=== PATIENT | female | born 1995 | race Caucasian/White ===

== ENCOUNTER → 2021-07-03 | Outpatient (CLI) | payer OTHER ==
--- NOTE | 2021-07-04 08:58 | USB ---
Reason for exam: clinical finding. History: Patient is nulliparous. Taking hormonal contraceptives beginning at age 25. Physical Findings: Nurse Summary: 1cm nodule in the left breast at 2 o'clock (nurse martha). US Breast Limited LT Left limited breast ultrasound including focal area of concern, retroareolar and axilla demonstrates a 0.8 x 0.4 x 1.4cm hypoechoic, avascular lesion at 2 o'clock and a 1.0 x 0.6 x 1.2cm hypoechoic, avascular lesion at 2 o'clock. These results were verbally communicated with the patient and result sheet given to the patient on 07/03/21. ASSESSMENT: Suspicious, BI-RAD 4 RECOMMENDATION: Ultrasound core biopsy of the left breast. (larger, palpable lesion) Called Dr. Ontiveros's office with mammographic findings and has scheduled an appointment for the patient for 07/05/21 at 11:[address] Quintero. PRELIMINARY REPORT CALLED AND FAXED TO DR. QUINTERO ON 07/04/21.
== END | disposition home or self-care (01) ==
LOC: RADMAMWWP 13:44
PROVIDERS: ATTEND Family Medicine
DX: N64.89 Other specified disorders of breast (principal)

== ENCOUNTER → 2021-07-05 | Outpatient (CLI) | payer OTHER ==
[2021-07-05 11:28] VITALS: BP 116/81; PULSE 62; RESP 16; TEMP 98.4
--- NOTE | 2021-07-05 12:13 | P.GSHP ---
History of Present Illness H&P Date: 07/05/21 Chief Complaint: mass left breast Olena is a 25 year old white female seen in consultation for Dr. Christopher Ontiveros regarding a mass in her left breast. She noticed this approximately 2 months ago. She had an ultrasound performed on [id number]. This revealed a 1 x 1.2 cm avascular lesion at 2:00 as well as a 0.8 x 1.4 cm lesion at 2:00. The patient does not complain of any pain in her breast. She denies any surgery or infection in her breast. She's not had any recent trauma of the breast. The lump was noted before the patient started any control. She is only on control for approximately 1 month. Caffeine: 8 0z. QOD nicotine: none, stopped 11/2 months ago; used nicotine for 3 years chocolate: weekly Family History: paternal aunt: ? type from this Hormonal history: Menarche: 13 G0; sexually active; BCP: pill on this for about 1 month periods regular Surgical History: hernia abdomen Medical History: none Social History: nicotine: Stopped approximately 1-1/2 months ago, uses nicotine outer smoking or draping for approximately 3 years prior to that Alcohol: rare drugs: Marijuana daily - Constitutional Constitutional: Reports sweats, Denies chills, Denies fever - EENT Eyes: denies blurred vision, denies pain Ears: right: decreased hearing, bilateral: tinnitus Ears, nose, mouth and throat: Denies headache, Denies sore throat - Breasts Breasts: bilateral: as per HPI - Cardiovascular Cardiovascular: Denies chest pain, Denies shortness of breath - Respiratory Respiratory: Denies cough, Denies 7 - Gastrointestinal Gastrointestinal: Denies abdominal pain, Denies diarrhea, Denies nausea, Denies vomiting - Genitourinary (Female) Genitourinary: Denies dysuria, Denies hematuria - Menstruation Menstruation: Reports period normal - Musculoskeletal Musculoskeletal: Denies myalgias - Integumentary Integumentary: Denies pruritus, Denies rash - Neurological Neurological: Denies numbness, Denies weakness - Psychiatric Psychiatric: Reports anxiety, Denies depression - Endocrine Endocrine: Denies fatigue, Denies weight change - Hematologic/Lymphatic Comment: none - Allergic/Immunologic Allergic/Immunologic: Reports seasonal allergies Past Medical History History of Any Multi-Drug Resistant Organisms: None Reported Smoking Status: Former smoker Medications and Allergies Home Medications Medication Instructions Recorded Confirmed Type Biotin 5 mg PO DAILY 07/05/21 07/05/21 History Pediatric Multivitamin No.30 1 tab PO DAILY 07/05/21 07/05/21 History [Multivitamin Children's Gummies] Tri-Lo-Cheryl 1 tab PO HS 07/05/21 07/05/21 History Allergies Allergy/AdvReac Type Severity Reaction Status Date / Time No Known Allergies Allergy Verified 07/05/21 11:25 Surgical - Exam Vital Signs Temp Pulse Resp BP Pulse Ox 98.4 F 62 16 116/81 100 07/05/21 11:25 07/05/21 11:25 07/05/21 11:25 07/05/21 11:25 07/05/21 11:25 BMI 18.3 - General no distress - Eyes normal ocular movement - ENT normal nares - Neck trachea midline - Respiratory normal respiratory effort, clear to auscultation - Cardiovascular Rhythm: regular Heart Sounds: normal: S1, S2 - Abdomen Abdomen: soft - Integumentary normal turgor - Neurologic no disoriented, no combative - Musculoskeletal normal gait - Psychiatric oriented to time, oriented to person, oriented to place, speech is normal, memory intact Breast Exam: BRA: 34B inspection: Bilateral grade 1 ptosis Palpation: Right breast: Multiple positional exam breast very dense with multiple areas of nodularity, no discrete masses of concern Right axilla: Positive shotty adenopathy Left breast: Multi-positional exam. Dense breast with multiple areas of nodularity increased nodularity approximately 2 o'clock position upper outer quadrant proximately 1.5 cm in size Left axilla: Positive shotty adenopathy Results Ultrasound results reviewed of the left breast Assessment and Plan Assessment: Impression: Dense multinodular breast suspected the lesion noted in the left breast were most likely represent a fibroadenoma right breast ultrasound as well as bilateral axillary ultrasound Plan: Ultrasound core biopsy left breast lesion of concern Ultrasound evaluation of bilateral axillas and the right breast Cc: Dr. Ontiveros
== END ==
LOC: WWCWWP 11:16
PROVIDERS: ATTEND Surgery
DX: N63.20 Unspecified lump in the left breast, unspecified quadrant (principal); Z87.891 Personal history of nicotine dependence

== ENCOUNTER → 2021-07-24 | Outpatient (CLI) | payer OTHER ==
--- NOTE | 2021-07-24 14:06 | USB ---
Reason for exam: additional evaluation requested from prior study. History: Patient is nulliparous. Taking hormonal contraceptives beginning at age 25. Physical Findings: Nurse did not find any significant physical abnormalities on exam. US Breast RT Technologist: Suha Negrete Right complete breast ultrasound includes all four quadrants, the retroareolar region and axilla. Finding demonstrates no cystic or solid lesion seen. These results were verbally communicated with the patient and result sheet given to the patient on 07/24/21. ASSESSMENT: Negative, BI-RAD 1 RECOMMENDATION: Clinical management of the right breast. Manage patient on a clinical basis.
== END | disposition home or self-care (01) ==
LOC: RADUSWWP 12:55
PROVIDERS: ATTEND Surgery
DX: R92.8 Other abnormal and inconclusive findings on diagnostic imaging of breast (principal)

== ENCOUNTER → 2021-08-06 | Day surgery (SDC) | payer OTHER ==
[2021-08-06 12:10] VITALS: RESP 16
[2021-08-06 13:23] VITALS: BP 115/77; PULSE 80; TEMP 98
--- NOTE | 2021-08-06 14:19 | USB ---
EXAMINATION TYPE: US biopsy breast VAD LT DATE OF EXAM: 08/06/2021 CLINICAL HISTORY: R92.8, Abnormal ultrasound. Palpable abnormality left breast TECHNIQUE: Ultrasound guided core biopsy of left breast with clip placement. COMPARISON: Left breast ultrasound July 03, 2021. FINDINGS: The procedure of ultrasound guided core biopsy was explained to the patient. Benefits, alternatives, and risks were discussed. An informed consent was then obtained. The patient was placed in supine positioning for imaging and for the procedure. Preprocedure ultrasound redemonstrates heterogeneous hypoechoic oval lesion 2:00 position left breast measuring just over 1.0 cm long axis without significant vascularity. The overlying skin was prepped and draped in usual sterile fashion. Lidocaine is used as anesthetic into the skin and subcutaneous tissue up to area of concern in the left breast. Under ultrasound guidance, a vacuum assisted biopsy gun device was used to obtain 2 core samples. Following this, a biopsy clip was left in lesion. There is successful visualization of clip along the periphery or outer aspect of the lesion on ultrasound. Mammogram deferred due to patient's age. The patient tolerated the procedure well without any immediate complication. The patient was kept in the radiology department for short stay after the procedure and then discharged home in stable condition. IMPRESSION: Successful, uncomplicated ultrasound guided core biopsy of area of concern in the left breast, full pathology results to follow. Low index of suspicion, favor benign fibroadenoma. Pathology Results: Benign LEFT BREAST, TWO O'CLOCK POSITION, CORE BIOPSY: Sclerotic fibroadenoma. Recommendation Additional follow up as clinically indicated. Routine screening shoud begin at age 40. MTDD
== END ==
LOC: RADUSWWP 11:57
PROVIDERS: ATTEND Surgery
DX: D24.2 Benign neoplasm of left breast (principal); R92.8 Other abnormal and inconclusive findings on diagnostic imaging of breast
CPT/HCPCS: 88305; 19083; A4648; J2001